=== PATIENT | male | born 1980 | race Caucasian/White ===

== ENCOUNTER → 2018-06-28 13:59 | Outpatient (CLI) | payer OTHER, SELFPAY ==
--- NOTE | 2018-06-28 | DI.RAD.S_ITS ---
PROCEDURE: XR SACRUM COCCYX MIN 2V INDICATIONS: sacral pain TECHNIQUE: 3 views of the sacrum and coccyx acquired. COMPARISON: [facility], CR, XR LUMBAR SPINE 2-3V, 06/28/2018, 14:11. FINDINGS: Bones: No fractures or dislocations. No suspicious bony lesions. Soft tissues: Visualized bowel gas pattern is normal. No suspicious soft tissue densities. IMPRESSION: No visualized acute fracture or dislocation. However, if clinical concern and/or pain persist, short interval imaging followup in 7-10 days is recommended, as occult injury cannot be definitively excluded. Dictated by: Basilia Escobedo M.D. on 06/28/2018 at 16:55 Approved by: Basilia Escobedo M.D. on 06/28/2018 at 16:56
--- NOTE | 2018-06-28 | DI.RAD.S_ITS ---
PROCEDURE: XR LUMBAR SPINE 2-3V INDICATIONS: SACRAL PAIN TECHNIQUE: 3 views of the lumbar spine were acquired. COMPARISON: None. FINDINGS: Bones: 5 [id number] vertebrae are present. There is normal bony alignment. No vertebral body compression fractures. No suspicious bony lesions. Soft tissues: Overlying bowel gas pattern is normal. No suspicious soft tissue calcifications. IMPRESSION: No visualized acute fracture or dislocation. However, if clinical concern and/or pain persist, short interval imaging followup in 7-10 days is recommended, as occult injury cannot be definitively excluded. Dictated by: Basilia Escobedo M.D. on 06/28/2018 at 16:54 Approved by: Basilia Escobedo M.D. on 06/28/2018 at 16:55
== END ==
PROVIDERS: Visit Provider Family Medicine
DX: M53.3 Sacrococcygeal disorders, not elsewhere classified (principal)
CPT/HCPCS: 72100; 72220

== ENCOUNTER → 2018-09-19 12:01 | Outpatient (CLI) | payer OTHER, SELFPAY ==
--- NOTE | 2018-09-19 | DI.MRI.S_ITS ---
PROCEDURE: MR LUMBAR SPINE WO CON INDICATIONS: LUMBAR BACK AND SACRAL PAIN TECHNIQUE: Noncontrast sagittal T1 spin echo and T2 fast echo, sagittal STIR, axial T1 and T2 fast spin echo through the lumbar spine. In cases with scoliosis, additional coronal T2 fast spin echo may be performed. COMPARISON: None. FINDINGS: Image quality: Excellent. Alignment and Curvature: There is normal bony alignment. Bone Marrow: Benign, intraosseous hemangioma noted in the L4 vertebral body. Small Schmorl's node noted in the inferior plate of the L4 vertebral body. Mild reactive endplate changes noted adjacent to the L5-S1 disc. No acute vertebral body compression fractures. Spinal Cord: Conus medullaris terminates at the L1 level. Visualized cord demonstrates normal signal and size. Paraspinous Soft Tissues: No paravertebral masses. L1-L2: Normal appearance. L2-L3: Normal appearance. L3-L4: Slight loss of disc signal. Mild, diffuse disc bulge. Mild bilateral facet hypertrophy. Mild narrowing of the central canal. Mild bilateral neural foraminal narrowing. No neural impingement. L4-L5: Loss of disc signal. Mild to moderate diffuse disc bulge. Mild bilateral facet hypertrophy. Mild narrowing of the central canal. Moderate bilateral neural foraminal narrowing. Focal high intensity zone noted in the right foraminal annulus compatible with a fissure. L5-S1: Loss of disc signal and slight loss of disc height. Mild, diffuse disc bulge. Small left central disc protrusion. Mild bilateral facet hypertrophy. No central stenosis. Mild left neural foraminal narrowing. Left central disc protrusion abuts and slightly displaces the traversing left S1 nerve root. Focal high intensity zone noted in the posterior annulus compatible with a fissure. Sacrum: Sacral signal is normal. No sacral fracture identified. The visualized lumbosacral plexus is normal in appearance. IMPRESSION: 1. Multilevel degenerative disc disease. 2. Multilevel facet arthropathy. 3. Mild L3-L4 and L4-L5 central canal narrowing. 4. Moderate bilateral L4-L5 neural foraminal narrowing. Mild bilateral L3-L4 neural foraminal narrowing. Mild left L5-S1 neural foraminal narrowing. 5. L5-S1 left central disc protrusion abuts and displaces the traversing left S1 nerve root. Please correlate with clinical data. 6. L4-L5 and L5-S1 disc annulus fissures. Dictated by: Danae Kaye MD, PhD on 09/19/2018 at 13:36 Approved by: Danae Kaye MD, PhD on 09/19/2018 at 13:50
--- NOTE | 2018-09-19 | DI.MRI.S_ITS ---
PROCEDURE: MR PELIS WO/W CON INDICATIONS: LUMBAR BACK AND SACRAL PAIN TECHNIQUE: Noncontrast axial and oblique coronal T1 spin echo and STIR through the sacroiliac joints. COMPARISON: None. FINDINGS: Image quality: Excellent. Bones: The sacroiliac joints appear intact. No adjacent bone marrow edema to suggest active sacroiliitis. No bony ankylosis. No suspicious marrow space occupying lesions. Soft tissues: No presacral masses. Rectum appears normal in caliber and wall thickness. No pathologic free pelvic fluid. IMPRESSION: Unremarkable MR examination of bilateral sacroiliac joints. No evidence of sacroiliitis. No abnormal marrow signal involving the pelvis and lower lumbar spine. No gross pelvic soft tissue abnormality. Dictated by: Primitivo Jarrett M.D. on 09/19/2018 at 14:12 Approved by: Primitivo Jarrett M.D. on 09/19/2018 at 14:14
== END ==
PROVIDERS: PCP Family Medicine; Visit Provider Family Medicine
DX: M54.5 Low back pain (principal); M53.3 Sacrococcygeal disorders, not elsewhere classified; M51.36 Other intervertebral disc degeneration, lumbar region; M48.061 Spinal stenosis, lumbar region without neurogenic claudication; M51.37 Other intervertebral disc degeneration, lumbosacral region; M48.07 Spinal stenosis, lumbosacral region; M47.816 Spondylosis without myelopathy or radiculopathy, lumbar region
CPT/HCPCS: 72148; 72197; A9579

== ENCOUNTER → 2019-03-27 10:48 | Outpatient (CLI) | payer OTHER, SELFPAY ==
--- NOTE | 2019-03-27 10:54 | DI.CT.S_ITS ---
PROCEDURE: CT LUMBAR SPINE WO CON INDICATIONS: CHRONIC MIDLINE LOW BACK PAIN/DDD TECHNIQUE: Noncontrast 3 mm thick sections acquired from the T12 level to the sacrum. Sagittal and coronal reformats were constructed. For radiation dose reduction, the following was used: automated exposure control. COMPARISON: [facility], CR, XR LUMBAR SPINE 2-3V, 06/28/2018, 14:11. [facility], CR, XR SACRUM COCCYX MIN 2V, 06/28/2018, 14:11. [facility], MR, MR LUMBAR SPINE WO CON, 09/19/2018, 12:13. FINDINGS: Image quality: Excellent. Bones: There is normal bony alignment. No acute vertebral body compression fractures. No suspicious lytic or blastic bony lesions. Central spinal caliber is of normal overall caliber. No pars defects. T12-L1: Normal L1-L2: Normal L2-L3: Normal L3-L4: Normal L4-L5: Normal L5-S1: Moderate loss of disc height is seen. Endplate irregularity and endplate sclerosis can be seen. Postoperative endplate osteophytes can be seen on the left. There is moderate left-sided and minimal right-sided neural foraminal narrowing seen. Mild central canal narrowing is seen. Soft tissues: No retroperitoneal masses or hematomas. Visualized aorta is normal in caliber. IMPRESSION: Focal L5-S1 degenerative change. Dictated by: Gagan Peacock M.D. on 03/27/2019 at 11:18 Approved by: Gagan Peacock M.D. on 03/27/2019 at 11:20
== END ==
PROVIDERS: PCP Family Medicine; Visit Provider Physician Assistant
DX: M51.37 Other intervertebral disc degeneration, lumbosacral region (principal)
CPT/HCPCS: 72131

== ENCOUNTER → 2020-10-28 10:35 | Outpatient (CLI) | payer OTHER, SELFPAY ==
--- NOTE | 2020-10-28 10:38 | DI.MRI.S_ITS ---
PROCEDURE: MR SHOULDER RT WO CON INDICATIONS: TENDINITIS OF RIGHT SHOULDER TECHNIQUE: Noncontrast oblique coronal T2 fast spin echo with fat saturation, oblique sagittal T1 spin echo and T2 fast spin echo with fat saturation, axial T1 spin echo and T2 fast spin echo with fat saturation through the shoulder. COMPARISON: None. FINDINGS: Image quality: Excellent. Rotator cuff: Supraspinatus tendinopathy is present, and there is low-grade partial thickness articular and bursal sided tear involving the critical zone. No full-thickness defect. Infraspinatus and teres minor tendons appear intact. Subscapularis tendon appears intact. No atrophy of the rotator cuff muscles. Mild fatty infiltration of the infraspinatus is noted. Bones and bursae: Hill-Sachs fracture deformity with minimal marrow edema. Moderate acromioclavicular joint degeneration. Acromion demonstrates conventional anatomy, without an os acromiale. Moderate subacromial-subdeltoid bursitis. Capsule and soft tissues: Labrum: Superior labral tear is present with bucket-handle appearance and extends into the proximal biceps labral anchor. Additional posterior labral tear is present with 1 mm paralabral cyst, and chronic appearance with adjacent glenoid rim spurring and sclerosis. There is also suspected extension of labral tear to the anterior segment, and a Bankart fracture although appears chronic.Long head of the biceps tendon intact. The rotator interval appears normal, without fibrosis. Coracohumeral ligament intact. IMPRESSION: Supraspinatus tendinopathy with low-grade partial thickness articular and bursal sided tear of the critical zone. Small Hill-Sachs fracture deformity and Bankart fracture. This appears nonacute. Circumferential labral tear involving the anterior , superior and posterior segments, with a small paralabral cyst measuring 1 mm adjacent to the posterior segment. Bucket-handle appearance to the labral tear at the superior segment with extension to the long head biceps anchor. Dictated by: Mj Charles M.D. on 10/28/2020 at 11:19 Approved by: Mj Charles M.D. on 10/28/2020 at 11:34
== END ==
PROVIDERS: PCP Family Medicine; Referring Provider Family Medicine; Visit Provider Family Medicine
DX: M75.81 Other shoulder lesions, right shoulder (principal); M75.111 Incomplete rotator cuff tear or rupture of right shoulder, not specified as traumatic; S42.291A Other displaced fracture of upper end of right humerus, initial encounter for closed fracture; S43.491A Other sprain of right shoulder joint, initial encounter
CPT/HCPCS: 73221